=== PATIENT | female | born 1995 | race African-American/Black ===

== ENCOUNTER 2020-01-14 09:31 | Emergency (ER) | payer BC ==
[~2020-01-14] VITALS: Ht 162.6 cm; Wt 143.0 kg
[2020-01-14] MEDS ORDERED: KETOROLAC 60MG/2ML VIAL IM ONE (10:30)
[2020-01-14 11:55] VITALS: BP 136/80
[2020-01-14 11:55] LABS: BASOPHILS % 0.5 % (0.0-2.0); EOSINOPHILS % 0.3 % (0.0-5.0); HEMATOCRIT. 35.3 % (36.0-48.0); LYMPHOCYTES % 15.2 % (20.0-50.0); MEAN CORPUSCULAR HEMOGLOBIN 21.8 pg (28.0-32.0); MEAN CORPUSCULAR VOLUME 70.1 fL (81.0-99.0); MEAN PLATELET VOLUME 8.7 fl (7.4-10.4); MONOCYTES % 8.7 % (2.0-8.0); NEUTROPHILS % 75.3 % (40.0-76.0); PLATELET 289 x1000/uL (130-400); RED BLOOD CELL COUNT 5.03 mill/uL (4.2-5.4); RED CELL DISTRIBUTION WIDTH 16.5 % (11.6-14.6)
[2020-01-14 12:09] LABS: CHLORIDE 104 mEq/L (98-107)
[2020-01-14 12:24] LABS: HCG SCREEN NEGATIVE
[2020-01-14 12:36] LABS: T4 FREE 1.02 ng/dL (0.76-1.46)
== END 2020-01-14 13:10 | disposition home or self-care (01) ==
LOC: ER 10:22
DX: J02.9 Acute pharyngitis, unspecified (principal); E11.9 Type 2 diabetes mellitus without complications
CPT/HCPCS: 36415; 76536; 80053; 81025; 84439; 84443; 84481; 84703; 85025; 87070; 87430; 96372; 99284; J1885